=== PATIENT | female | born 1945 | race Caucasian/White ===

== ENCOUNTER 2016-12-05 09:49 | Day surgery (SDC) | payer MEDICARE, OTHER ==
[~2016-12-05] VITALS: Ht 157.5 cm; Wt 98.0 kg
[2016-12-05] VITALS (8 sets, daily range): BP systolic 111–140; BP diastolic 47–66; PULSE 67–90; RESP 12–23; O2SAT 91–99
[~2016-12-05 09:49] MED LIST: ACET-171 PO; ALPR0.254 PO; Bupivacaine Liposome 1.3% 20 mL Inj INFILTRATE ONE; CHOL10008 PO; CYAN500 PO; Clindamycin Inj 900 MG in IV Premix 1 EACH IV ONE; DIPH-847 PO; FEXO-106 PO; FLUO40CA PO; Lactated Ringer's 1,000 ML IV ONE; MELO-253 PO; MONT10TA23 PO; OMEP20CA11 PO; RANI300T4 PO
[2016-12-05] MEDS ORDERED: Rocuronium 10 mg/mL 5 mL Inj ONE (09:50)
[2016-12-05] MEDS ORDERED: Ondansetron 2 mg/mL 2 mL Inj ONE (09:50)
[2016-12-05] MEDS ORDERED: Propofol 10 mg/mL 20 mL Inj ONE (09:50)
[2016-12-05] MEDS ORDERED: Neostigmine 1 mg/mL 10 mL Inj ONE (09:50)
[2016-12-05] MEDS ORDERED: Glycopyrrolate 0.2 MG/ML 1mL Inj ONE (09:50)
[2016-12-05] MEDS ORDERED: fentaNYL-PF 50 mCg/mL 2 mL Inj ONE (09:50)
--- NOTE | 2016-12-05 10:25 | PCM.HPANE ---
Patient Data Surgeon Admitting Provider: Attending Provider:Thomas Griffith MD Primary Care Physician:Silva Harris MD Other Provider:Lin Breauxingham Anesthesia Reason for Visit Left Knee Arthritis Ht/WT & BMI Height (Feet): 5 Height (Inches): 2 Weight (Kilograms): 99.79 Body Mass Index 40.00 Allergies Coded Allergies: Penicillins (Verified Allergy, Severe, HIVES,RASH,ITCH, 10/22/15) Quinolones (Verified Allergy, Severe, AND AVELOX, SKIN RASH, SEVERE ITCHING, 10/22/15) amoxicillin (Verified Allergy, Severe, RASH,ITCH, 10/22/15) Carbapenems (Verified Allergy, Unknown, UNKNOWN, 10/22/15) Potassium Clavulanate (Verified Allergy, Unknown, UNKNOWN, 10/22/15) Sulfa (Sulfonamide Antibiotics) (Verified Allergy, Unknown, rash/itching, 10/22/15) albuterol (Verified Allergy, Unknown, UNKNOWN (TAKING PROAIR HFA), 10/22/15) clarithromycin (Verified Allergy, Unknown, UNKNOWN, 10/22/15) diazoxide (Verified Allergy, Unknown, UNKNOWN, 10/22/15) doxycycline (Verified Allergy, Unknown, gi problems, 10/22/15) fluticasone (Verified Allergy, Unknown, UNKNOWN, 10/22/15) guaifenesin (Verified Allergy, Unknown, UNKNOWN, 10/22/15) levofloxacin (Verified Allergy, Unknown, UNKNOWN, 10/22/15) metaproterenol (Verified Allergy, Unknown, UNKNOWN, 10/22/15) moxifloxacin (Verified Allergy, Unknown, UNKNOWN, 10/22/15) promethazine (Verified Allergy, Unknown, UNKNOWN, 10/22/15) saccharin (Verified Allergy, Unknown, UNKNOWN, 10/22/15) codeine (Verified Adverse Reaction, Severe, ANXIETY, PANIC ATTACKS, 10/22/15 ) Cephalosporins (Verified Adverse Reaction, Intermediate, Nausea,Vomiting, RASH & ITCHING, 10/22/15) Milk Containing Products (Verified Adverse Reaction, Unknown, STOMACH PAIN , VOMITING, 10/22/15) celecoxib (Verified Adverse Reaction, Unknown, UNKNOWN, 10/22/15) Uncoded Allergies: PEPPERS (Adverse Reaction, Severe, BAD STOMACH BURNING, 08/10/15) Past Anesthesia History Anesthesia History: Denies:: Abnormal Airway, Anesthesia Reactions, Difficult Intubation, Fam Anesthesia Reaction, Fam Malignant Hypertherm, Malignant Hyperthermia Diabetes History Hx Diabetes?: Yes Type of Diabetes: Type II Glycemic Control: Diet Controlled MRSA MRSA: No Medications Home Meds Incl Beta Jocelyn: No Reported Medications Cholecalciferol (Vitamin D3) (Vitamin D3)1,000 Unit Tab.chew8,000 Unit PO DAILY 11/30/16 Cyanocobalamin (Vitamin B12)500 Mcg Tablet1,000 Mcg PO DAILY 11/30/16 Ranitidine 300 Mg [id number] Mg PO BID Ref 0 11/30/16 Omeprazole 20 Mg Capsule.dr20 Mg PO DAILY Ref 0 11/30/16 Montelukast 10 Mg Wulpme10 Mg PO HS Ref 0 11/30/16 Meloxicam 15 Mg Tablet7.5-15 Mg PO DAILY 30 Days Ref 0 11/30/16 Fexofenadine 180 Mg Qbfebz268 Mg PO Q2DAY PRN Insomnia 11/30/16 Diphenhydramine HCl (Children's Benadryl Allergy)12.5 Mg Tab.chew12.5 Mg PO HS PRN Insomnia 11/30/16 Alprazolam 0.25 Mg Tablet0.5-1 Tab PO BID PRN For Anxiety Ref 0 11/30/16 Acetaminophen 500 Mg Alqqpq878-3,000 Mg PO Q6H PRN For Pain 11/30/16 Fluoxetine 40 Mg Qminipb99 Mg PO DAILY Ref 0 11/30/16 Discontinued Reported Medications Cholecalciferol (Vitamin D3) (Vitamin D3)1,000 Unit Tab.chew8,000 Unit PO DAILY 10/21/15 Cyanocobalamin (Vitamin B12)500 Mcg Tablet1,000 Mcg PO DAILY 10/21/15 Ranitidine 300 Mg Hfslro891 Mg PO BID Ref 0 10/21/15 Montelukast 10 Mg Hbejyz62 Mg PO HS Ref 0 10/21/15 Hydrocodone-Acetaminophen 5-325 mg 1 Each Tablet1 Tablet PO Q6H PRN For Pain Ref 0 10/21/15 Fluoxetine 10 Mg Hrwint18 Mg PO DAILY Ref 0 10/21/15 Alprazolam 0.25 Mg Tablet0.5-1 Tab PO DAILY PRN For Anxiety Ref 0 10/21/15 [allertec] No Conflict Check20 Mg DAILY 10/21/15 History History of ENT Problems?: Yes HEENT History: Positive for:: Cataracts (bilateral) Sinus Problem Denies:: Abnormal Airway Difficult Intubation Dysphagia Hearing Problem Denture Type: None Teeth Condition: Within Normal Limits Hx of Heart Problems?: Yes Cardiovascular History: Positive for:: Irregular Heartbeat (LBBB, prolonged QT ) Thrombophlebitis (remote hx of dvt post childbirth 42 yr ago) Denies:: AICD Atrial Fibrillation Cardiac Surgery Chest Pain Congestive Heart Failure Edema Heart Murmur Hypertension (hyperlipidemia) Pacemaker Valvular Heart Disease (echo 10/2015- ef 55%) Hx of Respiratory Problem?: Yes Respiratory History: Positive for:: Asthma Cough (no fever- pt asked to see Urgent Care prior to surgery date) Pneumonia Denies:: COPD Chest Surgery Dyspnea Emphysema Hemoptysis Oxygen Administration Tuberculosis Use of C-PAP Machine Use of Inhalers / NEBS Hx Neurologic Problems?: No Neurological History: Positive for:: Dizziness Denies:: Alzheimer's Disease CVA Dementia Headaches Parkinson's Disease Seizures Hx of GI Problems?: Yes Hx of Problems?: No Genitourinary History: Denies:: HX of Hemodialysis Kidney Stones Urinary Tract Infection HX of Peritoneal Dialysis: No Female Hx: Denies:: Currently (hysterectomy) Endometriosis Pelvic Inflammatory Problems with Breasts? Skin History: Denies:: History Skin Disorders? Pressure Ulcers Hx Musculoskeletal Problems?: Yes Musculoskeletal History: Positive for:: Degenerative Joint Musculoskeletal Trauma (prior hx foot fx) Osteoarthritis (left knee current admission problem) Denies:: Back Injury Joint Replacement Hx of Psycho/Social Problems?: Yes Psycho Social History: Positive for:: Anxiety Denies:: Hx Depression Suicide Attempt Hx Surgeries?: Yes (SHADIA,HYST,FREDERIC FUNDOPLICATION,GASTROSTOMY,UMBILICAL HERNIA,ORIF) Hx Any Other Health Problems?: Yes Other History: Denies:: Cancer Endocrine Disease Hospitalization Thyroid Disease History Blood Transfusions: Denies:: Blood Transfuse Reaction Blood Transfusions Hx Diabetes: Yes Hx Alcohol Use: NoHx Substance Use: No Smoking Status: Never Smoker Have You Smoked inLast 12 mo: No Stop/Bang S-Snoring: Do You Snore Loudly: Yes T-Tired: feel tired, fatigued: Yes O-Obsered: Observed not breath: No P-Blood Pressure: treated: No B- Body Mass Index > 35 kg/m2: Yes A- Age over 50: Yes N- Neck Large Circumference: No G- Gender Male: No BRITTANY Total Score: 4 Risk Assessment Category Category 1A: Patient has history of documented sleep apnea, and HAS NOT received any narcotic, sedative or anesthesia administration during this stay. Category 1B: Patient has history of documented sleep apnea, and HAS received any narcotic , sedative or anesthesia administration during this stay Category 2: Patient has SUSPECTED Obstructive Sleep Apnea, and HAS received any narcotic , sedative or anesthesia administration during this stay. Category 3: Patient has SUSPECTED Obstructive Sleep Apnea and HAS NOT received narcotic, sedative or anesthesia administration during this stay. Category 4: Outpatient in Procedural Areas with known sleep apnea or who screen positive for High Risk via the STOP/BANG questionnaire. Exam Exam General Appearance: Alert, Oriented X3, Cooperative, Mild Distress HEENT/AIRWAY: MP 2, Neck Movement (thick, from), Mouth Opening (moderate) Lungs: Clear to Auscultation Heart: Exam Unremarkable Plan Impression Patient chart reviewed, patient interviewed and anesthestic plan with risks, benefits, and alternatives discussed, and informed consent obtained. ASA Physical Status: ASA2 Mod Systemic Disease Anesthetic Plan: GA Bene/Risks/Altern/Consents: Yes HP Complete Prior to Induction: Yes Other patient desires Les Calvin MD Dec 05, 2016 10:25
[2016-12-05] MEDS ORDERED: Lactated Ringer's 1,000 ML IV ONE (10:42)
[2016-12-05] MEDS: Vancomycin Inj 1,000 MG in IV Premix 1 EACH IV ONE ×2 (10:50→11:00)
[2016-12-05] MEDS ORDERED: Lactated Ringer's 500 ML IV PRN (11:48)
[2016-12-05] MEDS ORDERED: Lactated Ringer's 1,000 ML IV SCH (11:48)
[2016-12-05] MEDS ORDERED: Ondansetron 2 mg/mL 2 mL Inj IVPUSH PRN (11:50)
[2016-12-05] MEDS ORDERED: EPHEDrine Sulfate 50 mg/mL Inj IVPUSH PRN (11:50)
[2016-12-05] MEDS ORDERED: Labetalol 5 mg/mL 4 mL Inj IV PRN (11:50)
[2016-12-05] MEDS ORDERED: fentaNYL-PF 50 mCg/mL 2 mL Inj IVPUSH PRN (11:50)
[2016-12-05] MEDS ORDERED: HYDROmorphone 1 mg/mL Inj IVPUSH PRN (11:50)
[2016-12-05] MEDS ORDERED: hydrALAZINE 20 mg/mL Inj IVPUSH PRN (11:50)
[2016-12-05] MEDS ORDERED: Atropine 0.4 mg/mL Inj IVPUSH PRN (11:50)
[2016-12-05] MEDS ORDERED: Phenylephrine 10,000 mCg/mL Inj IVPUSH PRN (11:50)
[2016-12-05] MEDS ORDERED: Bupivacaine Liposome 1.3% 20 mL Inj ONE (11:51)
[2016-12-05] MEDS ORDERED: Tranexamic Acid 100 mg/mL 10 mL Inj ONE (11:51)
[2016-12-05] MEDS ORDERED: 0.9% Sodium Chloride 100 ML ONE (11:52)
[2016-12-05] MEDS ORDERED: Bupivacaine-MPF 0.5% W/EPI 30 mL Inj INFILTRATE ONE (12:44)
--- NOTE | 2016-12-05 13:47 | DRSVH ---
PROCEDURE: X-RAY LEFT KNEE, ONE OR TWO VIEWS ([id number]) INDICATIONS: check alignment TECHNIQUE: 2 view(s) of the knee acquired. COMPARISON: None. FINDINGS: Bones: Patient is status post knee joint arthroplasty. Hardware components are in expected position s. Visualized bony structures are intact. Soft tissues: Overlying postoperative changes are noted. IMPRESSION: Expected postsurgical change for left knee unicondylar arthroplasty. Dictated by: Sushma Stone MD, PhD on 12/05/2016 at 13:44 Approved by: Sushma Stone MD, PhD on 12/05/2016 at 13:45
--- NOTE | 2016-12-05 13:59 | PCM.ANEP1 ---
Post Anesthesia PACU Phase 1 Assessment Vital Signs Vital Signs Date Time Temp Pulse Resp B/P Pulse Ox O2 Delivery O2 Flow Rate FiO2 12/05/16 13:50 69 12 133/59 95 Nasal Cannula 2 12/05/16 13:45 37.0 71 17 111/64 97 Nasal Cannula 2 12/05/16 13:40 72 15 123/60 95 Nasal Cannula 2 12/05/16 13:35 78 16 140/52 96 Nasal Cannula 2 12/05/16 13:30 83 20 131/59 91 Room Air 12/05/16 13:25 36.8 90 23 133/60 99 Simple Mask 8 12/05/16 10:44 35.9 75 20 126/66 96 Room Air Anesthetic Administered: GA Level of Alertness: Awake, talking MEDLEY's with Equal Strength: Yes Pain: No Nausea or Vomiting: No CV Function & Hydration Stable: Yes Airway Device: Lungs: Normal Air Movement PACU Phase 2 Assessment Complications: No Follow up Care: No Patient Instructions Provided: N/A Les Lugo MD Dec 05, 2016 13:59
[2016-12-05] MEDS ORDERED: oxyCODONE-Acetamin 5-325 mg Tablet PO ONE (14:23)
--- NOTE | 2016-12-06 00:44 | OP ---
[address] [address] OPERATIVE REPORT PATIENT: JOHN LOZOYA : 1945 MR#: [id number] ADMIT: 12/05/2016 JOB ID: [id number] DATE OF SURGERY: 12/05/2016 PREOPERATIVE DIAGNOSIS(ES): Advanced medial compartment osteoarthritis. POSTOPERATIVE DIAGNOSIS(ES): Advanced medial compartment osteoarthritis. PROCEDURE: Diagnostic arthroscopy to determine appropriateness for unicompartmental knee replacement, followed by open arthrotomy with unicompartmental knee replacement, left knee. SURGEON: Thomas Griffith MD KAIAWHINA KOHANGA REO: Ly Lima PA-C, programs assistant was required due to the complexity of the operation. COMPLICATIONS: None. INDICATIONS: This woman has advanced medial compartment osteoarthritis. She has failed conservative treatment. She elects to proceed with a unicompartmental knee arthroplasty versus total knee depending on findings at diagnostic arthroscopy. She understands the potential for risks and complications, which include but is not limited to, infection, thromboembolic, neurovascular events, as well as potential for arthritis in unresurfaced compartments and implant failure. DESCRIPTION OF PROCEDURE: The patient was prepped and draped in the usual sterile fashion. An anteromedial portal was utilized. A diagnostic arthroscopy was carried out. The condition of the lateral compartment was assessed. It noted mild softening of the tibial plateau, but overall intact with good condition of the articular cartilage. Decision was made to proceed with the unicompartmental knee replacement, and the arthroscope was removed after the knee had been lavaged of irrigant. An anteromedial approach was then made to the knee. Dissection carried down. Frontal bossing and a patellar osteophyte was removed. The alignment apparatus was assembled and the tibial cut was made. The spacer block was then utilized and placed in appropriate position, and the distal femoral cut was made. Bone fragment was removed. Cut had been made with a 1 mm distal offset with the caliper measuring 6 mm of bone removed. This was then sized to a #5 femoral chamfer block fixed in appropriate position. Rotation and drill holes and chamfer cuts were made. All meniscal tissue and osteophytes were removed. The tibia was sized to an E component, fixed provisionally. Drill holes were made. Trial reduction was performed, and 9 mm polyethylene produced excellent alignment and soft tissue tension. Pressurized lavage was utilized, followed by pressurized cementation of the components. Excess cement removed during the curing process. Cut margins injected with Exparel and Marcaine. Final construct assembled. Tourniquet let down. Hemostasis achieved. Closure over deep drain #2 Quill deep, followed by 2-0 Vicryl, 3-0, and a 4-0 intracuticular stitch. The patient tolerated the procedure well. There were no complications.
== END 2016-12-05 23:59 | disposition home or self-care (01) ==
LOC: SAS 09:49
PROVIDERS: ATTEND Orthopaedic Surgery
DX: M17.12 Unilateral primary osteoarthritis, left knee (principal); I44.7 Left bundle-branch block, unspecified; E78.5 Hyperlipidemia, unspecified; E11.9 Type 2 diabetes mellitus without complications; F41.9 Anxiety disorder, unspecified; J45.909 Unspecified asthma, uncomplicated; K21.9 Gastro-esophageal reflux disease without esophagitis; E66.01 Morbid (severe) obesity due to excess calories; Z86.718 Personal history of other venous thrombosis and embolism; Z98.84 Bariatric surgery status; Z90.710 Acquired absence of both cervix and uterus; Z68.41 Body mass index [BMI] 40.0-44.9, adult; Z86.010 Personal history of colon polyps
CPT/HCPCS: 27446; 73560; C1713; C1776; J1885; J2405; J2710; J3010; J3370; J3490; J7120